=== PATIENT | male | born 1990 | race Caucasian/White ===

== ENCOUNTER 2024-10-19 15:14 | Emergency (ER) | payer OTHER, SELFPAY ==
[2024-10-19 15:21] VITALS: BP 128/95; BP 130/92; PULSE 107; PULSE 120; RESP 18; TEMP 36.9; O2SAT 96; BMI 22.6
--- OUTSIDE RECORDS SUMMARY | 2024-10-19 15:59 | XMS_ITS | Clinical Summary ---
Author Organization [facility] Address [address] [place] [address] Phone Care Team Providers Care Obiee Report Developer Name Role Phone Physician, No Pcp Primary Care Provider Unavaila ble Allergies No known active allergies Medications oxyCODONE (OXY-IR) 5 mg immediate release capsule Take 1 capsule (5 mg total) by mouth every 6 (six) hours if needed for severe pain. Max Daily Amount: 20 mg 6 capsule 05/24/2024 Active Active Problems No known active problems Social History Tobacco Use Types Packs/Day Years Used Date Smoking Tobacco: Every Day Cigarettes Tobacco Cessation:Ready to Q uit: Not Asked; Counseling Given: Not Answered Alcohol Use Standard Drinks/Week Comments Yes 0 (1 standard drink = 0.6 oz pur e alcohol) Sex and Gender Information Value Date Recorded Sex Assigned at Male 05/23/2024 10:23 PM EST Legal Sex Male 6:11 AM EST Gender Identity Male 05/23/2024 10:23 PM EST Sexual Orientation Straight 05/23/2024 10 :23 PM EST Obstetrics History Last Filed Vital Signs Vital Sign Reading Time Taken Comments Blood Pressure 129/70 05/24/2024 12:08 AM EST Pulse 77 05/24/2024 12:08 AM EST Temperature 36.8 C (98.3 F) 05/24/2024 12:08 AM EST Respiratory Rate 18 05/24/2024 12:08 AM EST Oxygen Saturation 98% 05/24/2024 12:08 AM EST Inhaled Oxygen Concentration - - Weight 71.7 kg (158 lb) 05/23/2024 6:22 PM EST Height 180.3 cm (5' 11 ) 05/23/2024 6:22 PM EST Body Mass Index 22.04 05/23/2024 6:22 PM EST Plan of Treatment Health Maintenance Due Date Last Done Comments DTaP,Tdap,and Td Vaccines (1 - Tdap) 2010 Hepatitis B Vaccines (1 of 3 - 19+ 3-dose series) 2010 Pneumococcal Vaccine: Pediat rics (0 to 5 Years) and At-Risk Patients (6 to 49 Years) (1 of 2 - PCV) 2010 COVID-19 Vaccine (1 - 2023-2 5 season) 2023 Cholesterol Screening (Lipid Panel) 05/24/2024 Depression Screening 05/24/2024 HIV Screening 05/24/2024 Hepatitis C Screening 05/24/2024 Social Influencers of Health Screening 05/24/2024 Influenza Vaccine (#1) 2024 HIB Vaccines Aged Out No longer eligi ble based on patient's age to complete this topic HPV Vaccines Aged Out No longer eligi ble based on patient's age to complete this topic Hepatitis A Vaccines Aged Out No long er eligible based on patient's age to complete this topic IPV Vaccines Aged Out No longer eligi ble based on patient's age to complete this topic MMR Vaccines Aged Out No longer eligi ble based on patient's age to complete this topic Meningococcal ACWY Vaccine Aged Out N o longer eligible based on patient's age to complete this topic Meningococcal B Vaccine Aged Out No l onger eligible based on patient's age to complete this topic RSV Immunization Patients Un amaury 20 months Aged Out No longer eligible b ased on patient's age to complete this topic Varicella Vaccines Aged Out No longer eligible based on patient's age to complete this topic Insurance MEDICAID - [place] Care Teams Obiee Report Developer Relationship Specialty Start Date End Date Physician, No Pcp PCP - General 05/23/24
--- NOTE | 2024-10-19 16:21 | ED_ITS ---
HPI - General Adult General Chief complaint: General Medical Stated complaint: seizure like activities no headstrike Time Seen by Provider: 10/19/24 16:06 Related Data Allergies Allergy/AdvReac Type Severity Reaction Status Date / Time No Known Allergies (No Known Allergy Verified 10/19/24 15:28 Allergies*) [facility] Social History Social History Smoked in Last 30 Days: No Use of substances other than those prescribed or required for medical reasons: Yes Substance Use Type: Marijuana Advance Directives: No Advance Directives Information Provided: No Physical Exam ED Vital Signs: Vital Signs - 24 hr 10/19/24 15:21 Temperature 98.4 F Pulse Rate 107 H Respiratory Rate 18 Blood Pressure 128/95 H Pulse Oximetry 96 Oxygen Delivery Method Room Air BMI result Body Mass Index 22.6 Medical Decision Making Medical Decision Making MDM Narrative: I only read the triage report. Patient refused to talk to me. He seems to be awake alert he is answering questions. Does not want to stay. Does not want to be worked up. He signed out against medical advice. I did explain to him based on the triage report there is a chance this could be secondary to seizure versus syncope versus arrhythmia. He should not engage in any activities that will put him in danger if he had a repeat episode of this. This includes driving. This includes swimming. Patient states understanding signed out against medical advice Differential Diagnosis Differential Diagnoses: The differential diagnosis associated with the presentation includes Seizure, syncope, irregular heartbeat, ACS Admission/Observation Consideration of admission/observation: Escalation of care including admission/observation considered Discharge Plan Discharge Clinical Impression: Seizure, Syncope Patient Disposition: Left Against Medical Advice Instructions: Near Syncope (ED), New-Onset Seizure in Adults (ED) Additional Instructions: Risk of seizure risk of irregular heartbeat exists. Please do not drive. Please do not swim. Please do not do any activities that would put you in danger follow-up closely. If you change your mind please come back immediately. Referrals: Physician,Tangela Lam [Primary Care Provider, Medical] - 10/19/24 Stand Alone Forms: Against Medical Advice Print Language: Mohawk
[2024-10-19 16:33] VITALS: BP 133/82; PULSE 85; RESP 14; TEMP 36.8; O2SAT 98
--- NOTE | 2024-10-19 16:40 | PC.NURSE ---
Pt called over this RN and stated that he wanted to leave. This RN notified the attending provider who had signed up for the patient. Dr. Omalley came over to talk to pt. At this time pt stated that he did not want to be evaluated, receive any testing or monitoring and wants to go. He states that he feels well, and had something to drink in the ED. He walks with steady gait unassisted. Vitals WNL. Dr. Omalley explained to the pt that he should be properly evaluated with blood work and testing as there were reports that he may of had a seizure or syncopal episode. Pt affirms that he would like to leave. At this time pt signed AMA paperwork and left the department waiting for his ride to pick him up.
[2024-10-19 16:45] VITALS: BP 133/82; PULSE 85; RESP 14; TEMP 36.8; O2SAT 98
== END 2024-10-19 16:59 | disposition left against medical advice (07) ==
PROVIDERS: Emergency Provider Emergency Medicine Emergency Medical Services
DX: R56.9 Unspecified convulsions (principal); R55 Syncope and collapse
CPT/HCPCS: 99282; 99283

== ENCOUNTER 2024-10-19 17:14 | Inpatient (IN) | payer OTHER, SELFPAY ==
--- NOTE | ~2024-10-19 | MR_ITS ---
EXAMINATION: MR BRAIN WITHOUT CONTRAST CLINICAL INFORMATION: Seizure COMPARISON: No prior MRI. CT head 10/19/2024. TECHNIQUE: MRI of the brain was obtained using routine sequences without contrast. Examination performed on a 1.5 Savita Siemens high-field unit. FINDINGS: Study is essentially bordering on nondiagnostic. The patient could not follow commands nor remain still for the exam. Only axial and sagittal T1, axial diffusion, and severely motion degraded axial flair sequences were able to be obtained. There is no diffusion restriction identified. There is no gross intracranial hemorrhage, or extra-axial fluid collection. No mass effect, edema, or shift of midline. Ventricles, sulci, and cisterns are normal in size and configuration for patient age. Mild asymmetric prominence of the right lateral ventricle is present, normal variant. Temporal horns are symmetric. The FLAIR sequence is heavily motion degraded and essentially nondiagnostic. No large white matter abnormality is present. Moderate mucosal thickening noted within the right maxillary sinus and ethmoid sinuses, with a small right maxillary air-fluid level. No gross bone marrow signal abnormality is evident. MR/MR head/brain wo con IMPRESSION: 1. Essentially nondiagnostic examination due to patient motion and inability to follow commands. 2. Grossly, no intracranial hemorrhage, acute infarction, mass effect, or edema. Repeat examination recommended when the patient is able to tolerate and follow commands. Electronically signed by: Aris Guerrero MD 10/20/2024 01:57 PM EDT
--- NOTE | ~2024-10-19 | CT_ITS ---
CLINICAL HISTORY: new sz CT head without contrast Comparison: None provided Findings: No intra-axial mass, midline shift, hydrocephalus, or acute hemorrhage. No significant atrophy-like change or white matter disease. Air-fluid level right maxillary sinus suggesting acute sinusitis. Mucosal thickening throughout the paranasal sinuses. The orbits are within normal limits. There is no acute fracture. IMPRESSION: 1. No acute intracranial findings. This document has been electronically signed by: Omid Michaels MD on 10/19/2024 21:29:59
--- NOTE | ~2024-10-19 | XR_ITS ---
CLINICAL HISTORY: sob 1 view chest x-ray Comparison: None provided Findings: Mild bilateral infrahilar patchy opacities/bronchial wall thickening. No significant pleural effusion or pneumothorax. Normal size heart. No acute fracture. IMPRESSION: Possible small airways disease. This document has been electronically signed by: Omid Michaels MD on 10/19/2024 21:34:30
--- NOTE | 2024-10-19 17:15 | ED.GENADULT ---
HPI - General Adult General Chief complaint: Seizure Stated complaint: Seizure recently Time Seen by Provider: 10/19/24 19:36 Related Data Home Medications ?Medication ?Instructions ?Recorded ?Confirmed No Known Home Meds 10/20/24 10/20/24 Allergies Allergy/AdvReac Type Severity Reaction Status Date / Time No Known Allergies (No Known Allergy Verified 10/19/24 17:18 Allergies*) [facility] Past Medical History Medical History Alcohol use disorder Social History Social History Alcohol intake: current Alcohol intake frequency: a few times a week Substance Use Type: Marijuana Physical Exam ED Vital Signs: Vital Signs - 24 hr 10/19/24 17:16 10/19/24 19:54 10/19/24 20:54 Temperature 97.8 F 98.5 F 98.3 F Pulse Rate 113 H 115 H 97 Respiratory Rate 18 19 16 Blood Pressure 130/107 H 125/59 L 118/92 H Pulse Oximetry 99 98 95 Oxygen Delivery Method Room Air Room Air Room Air 10/19/24 22:00 Temperature 98.3 F Pulse Rate 16 L Respiratory Rate 20 Blood Pressure 118/78 Pulse Oximetry 98 Oxygen Delivery Method Room Air BMI result Body Mass Index 20.5 Course Course Course Narrative: This is an RME: Additional HPI, ROS, PE not included below will be deferred to primary provider. RME assessment and note performed by: Chastity Solorio PA-C This is a 89-emaj-buw-male who presents to the ER with concerns for possible seizure today. Reports that while he was at work in a very hot building he was lowered to the ground. He states that there was no seizure like activity. No etoh use. +marijuana use. Trip to [place] there and back (26 hrs about 3 months ago). No other recent travels, surgeries or hospitalizations. Plan: Labs, EKG, further ER eval needed Medications Administered Generic Name Dose Route Start Last Admin Trade Name Freq PRN Reason Stop Dose Admin Enoxaparin Sodium 40 mg 10/20/24 00:30 10/20/24 01:20 Enoxaparin Sodium 40 Mg/0.4 Ml Syringe SUBCUT 40 mg BEDTIME BERYL Administration Thiamine HCl 100 mg/ Sodium 101 mls @ 202 mls/hr 10/20/24 00:35 10/20/24 07:15 Chloride IV Infused DAILY BERYL Infusion Lactated Ringer's 1,000 mls @ 100 mls/hr 10/20/24 13:15 10/20/24 14:21 Lr IVCONT 100 mls/hr .Q10H BERYL Administration Nicotine Polacrilex 2 mg 10/20/24 13:06 10/20/24 14:17 Nicotine Polacrilex 2 Mg Gum BUCCAL 2 mg Q2H PRN Administration Nicotine Cravings Sodium Chloride 3 ml 10/20/24 08:00 10/20/24 08:13 0.9 % Sodium Chloride Flush 3 Ml Syringe IVFLUSH 3 ml QSHIFT BERYL Administration Discontinued Medications Generic Name Dose Route Start Last Admin Trade Name Freq PRN Reason Stop Dose Admin Diazepam 10 mg 10/19/24 19:30 10/19/24 19:27 Diazepam 10 Mg/2 Ml Cartridge IM 10/19/24 19:31 10 mg STAT STA Administration Diphenhydramine HCl 50 mg 10/19/24 19:41 10/19/24 19:40 Diphenhydramine Hcl 50 Mg/Ml Vial IM 10/19/24 19:42 50 mg ONCE ONE Administration Haloperidol Lactate 5 mg 10/19/24 19:41 10/19/24 19:40 Haloperidol Lactate 5 Mg/Ml Vial IM 10/19/24 19:42 5 mg ONCE ONE Administration Sodium Chloride 1,000 mls @ 999 mls/hr 10/19/24 19:45 10/20/24 04:35 Ns IV 10/19/24 20:45 Infused .Q1H1M BERYL Infusion Levetiracetam 1,000 mg in 100 mls @ 400 mls/hr 10/19/24 19:35 10/19/24 23:10 Keppra IV 10/19/24 19:49 Infused ONCE ONE Infusion Magnesium Sulfate 2 gm in 50 mls @ 25 mls/hr 10/20/24 00:42 10/20/24 05:18 Magnesium Sulfate/H2o IV 10/20/24 02:41 Not Given ONCE ONE Potassium Chloride 10 meq in 100 mls @ 100 mls/hr 10/20/24 00:45 10/20/24 05:19 Potassium Chloride/H20 IV 10/20/24 04:44 Not Given Q1H BERYL Magnesium Sulfate 2 gm in 50 mls @ 25 mls/hr 10/20/24 05:15 10/20/24 07:40 Magnesium Sulfate/H2o IV 10/20/24 07:14 Infused ONCE ONE Infusion Potassium Chloride 10 meq in 100 mls @ 100 mls/hr 10/20/24 05:15 10/20/24 10:30 Potassium Chloride/H20 IV 10/20/24 09:14 Infused Q1H BERYL Infusion Lorazepam 2 mg 10/20/24 00:18 10/20/24 00:28 Lorazepam 2 Mg/Ml Vial IVPUSH 10/20/24 00:19 2 mg ONCE ONE Administration Phenobarbital 300 mg/ 345 mg 10/20/24 05:00 10/20/24 05:33 Phenobarbital 30 mg/ PO 10/20/24 05:01 345 mg Phenobarbital 15 mg ONCE ONE Administration Phenobarbital 200 mg/ 260 mg 10/20/24 08:00 10/20/24 11:09 Phenobarbital 60 mg PO 10/20/24 11:01 260 mg Q3H BERYL Administration Protocol Medical Decision Making Lab Data 10/20/24 06:01 10/20/24 12:39 Labs: Lab Results 10/19/24 10/19/24 10/19/24 Range/Units 17:46 19:40 20:47 WBC 12.2 H 10.7 (4.8-10.8) X10*3/uL RBC 3.95 L 4.08 L (4.60-5.80) X10*6/uL Hgb 14.0 14.1 (14.0-18.0) g/dl Hct 38.3 L 40.1 L (42.0-52.0) % MCV 97.0 98.3 H (80.0-98.0) fL MCH 35.4 H 34.6 H (27.0-33.0) pg MCHC 36.6 H 35.2 (31.0-36.0) g/dl RDW 12.4 12.3 (11.0-16.0) % Plt Count 177 159 L (160-400) X10*3/uL MPV 10.1 9.9 (9.4-12.4) fL Immature Gran % (Auto) 0.8 H 0.3 (0.0-0.4) % Neut % (Auto) 80.5 H 80.6 H (45-73) % Lymph % (Auto) 9.3 L 9.8 L (20-40) % [place] % (Auto) 8.2 8.0 (2-11) % Eos % (Auto) 0.5 0.5 (0-4) % Baso % (Auto) 0.7 0.8 (0-2) % Lymph # (Auto) 1.1 L 1.0 L (1.2-4.9) X10*3/uL [place] # (Auto) 1.0 0.9 (0.1-1.2) X10*3/uL Eos # (Auto) 0.1 0.1 (0.0-0.4) X10*3/uL Baso # (Auto) 0.1 0.1 (0.0-0.2) X10*3/uL Abs Immat Gran (auto) 0.10 H 0.03 (0.00-0.03) X10*3/uL Absolute Neuts (auto) 9.9 H 8.6 H (2.0-8.3) x10*3/uL Absolute Nucleated RBC 0.000 0.000 (0.0-0.012) X10*3/uL Nucleated RBC % (auto) 0.0 0.0 (0.0-0.2) /100WBC Sodium 136 137 (135-145) mmol/L Potassium 3.3 3.1 L (3.3-5.1) mmol/L Chloride 93 L 94 L (96-108) mmol/L Carbon Dioxide 29 27 (22-29) mmol/L Anion Gap 17 19 (12-20) BUN 13 13 (9-16) mg/dL Creatinine 0.88 0.78 (0.5-1.4) mg/dL Estim Creat Clear Calc 112.6 127.0 Estimated GFR > 60 > 60 POC Glucose 132 H (60-115) mg/dL Random Glucose 123 H 97 (60-115) mg/dL Calcium 9.9 10.2 (8.4-10.2) mg/dL Magnesium 1.5 L (1.6-2.6) mg/dL Total Bilirubin 0.9 0.8 (0.0-1.0) mg/dL Direct Bilirubin 0.3 0.3 (0.0-0.5) mg/dL AST 38 H 38 H (5-37) U/L ALT 36 38 (0-40) U/L Alkaline Phosphatase 117 128 H (39-117) U/L Troponin I High Sens 2.8 (<3.5-35.0) ng/L Total Protein 8.3 H 8.7 H (6.5-8.0) g/dL Albumin 5.0 5.1 H (3.5-5.0) g/dL Lipase 26 (8-78) U/L Ethyl Alcohol < 10 mg/dL Discharge Plan Discharge Clinical Impression: Generalized tonic-clonic seizure, Alcohol withdrawal Patient Disposition: Left Against Medical Advice Interventions: ED Discharge Assessment Last Done: 10/20/24 15:47 Discharge Date/Time: 10/20/24 15:49
[2024-10-19 17:16] VITALS: BP 130/107; PULSE 113; RESP 18; TEMP 36.6; O2SAT 99; BMI 20.5
--- NOTE | 2024-10-19 17:19 | ECG_ITS ---
Test Reason : syncope Blood Pressure : */* mmHG Vent. Rate : 89 BPM Atrial Rate : 89 BPM P-R Int : 130 ms QRS Dur : 88 ms QT Int : 374 ms P-R-T Axes : 2 4 18 degrees QTcB Int : 455 ms Normal sinus rhythm with sinus arrhythmia Normal ECG No previous ECGs available Referred By: Chastity Solorio Electronically Signed By: Zack Lord
[2024-10-19 18:00] LABS: MANUAL DIFF FLAG NO
[2024-10-19 18:07] LABS: Hematocrit 38.3 % (42.0-52.0); Hemoglobin 14.0 g/dl (14.0-18.0); Imm Gran Abs Auto 0.10 X10*3/uL (0.00-0.03); Imm Gran Pct Auto 0.8 % (0.0-0.4); Lymphocytes Absolute Auto 1.1 X10*3/uL (1.2-4.9); Mean Corpuscular HGB Conc 36.6 g/dl (31.0-36.0); Mean Corpuscular Hemoglobin 35.4 pg (27.0-33.0); Mean Corpuscular Volume 97.0 fL (80.0-98.0); NRBC Abs Auto 0.000 X10*3/uL (0.0-0.012); NRBC Pct Auto 0.0 /100WBC (0.0-0.2); Platelet Count 177 X10*3/uL (160-400); Red Blood Count 3.95 X10*6/uL (4.60-5.80); White Blood Count 12.2 X10*3/uL (4.8-10.8)
[2024-10-19 18:17] LABS: Alanine Aminotransferase 36 U/L (0-40); Albumin Level 5.0 g/dL (3.5-5.0); Alkaline Phosphatase 117 U/L (39-117); Anion Gap 17 (12-20); Aspartate Amino Transferase 38 U/L (5-37); Blood Urea Nitrogen 13 mg/dL (9-16); Calcium 9.9 mg/dL (8.4-10.2); Carbon Dioxide 29 mmol/L (22-29); Chloride 93 mmol/L (96-108); Creatinine Clr Calc Pharmacy 112.6; Estimated Glomerular Filt Rate > 60; Lipase 26 U/L (8-78); Magnesium 1.5 mg/dL (1.6-2.6); Potassium 3.3 mmol/L (3.3-5.1); Sodium 136 mmol/L (135-145); Total Protein 8.3 g/dL (6.5-8.0)
[2024-10-19 18:24] LABS: Troponin-I High Sensitivity 2.8 ng/L (<3.5-35.0)
[2024-10-19] MEDS: diazePAM 10 MG/2 ML CARTRIDGE IM (19:27)
--- NOTE | 2024-10-19 19:33 | ECG_ITS ---
Test Reason : SEIZURE Blood Pressure : */* mmHG Vent. Rate : 99 BPM Atrial Rate : 100 BPM P-R Int : 146 ms QRS Dur : 86 ms QT Int : 376 ms P-R-T Axes : 58 40 39 degrees QTcB Int : 482 ms Normal sinus rhythm Prolonged QT Abnormal ECG When compared with ECG of 19-Oct-2024 17:33, No significant change was found Referred By: Scarlett Omalley Electronically Signed By: Zack Lord
--- NOTE | 2024-10-19 19:38 | ED.SEIZURE ---
HPI - Seizure General Chief Complaint: Seizure Stated Complaint: Seizure recently Time Seen by Provider: 10/19/24 19:36 History of Present Illness HPI Narrative: Patient is a 34-year-old male with a history of having a possible seizure earlier today. He came to the hospital. Then did not want to be evaluated. He is waiting in the waiting room. Decided checked himself back because he wanted a work note. Patient was brought back to [facility]. I was called to bedside because patient had an acute tonic-clonic seizure. Has no history of seizures in the past. Related Data Allergies Allergy/AdvReac Type Severity Reaction Status Date / Time No Known Allergies (No Known Allergy Verified 10/19/24 17:18 Allergies*) [facility] Past Medical History Medical History Alcohol use disorder Social History Social History Substance Use Type: Marijuana Advance Directives: No Advance Directives Information Provided: Yes Physical Exam Vital Signs: Vital Signs: Last Vital Signs Temp 98.3 F 10/19/24 22:00 Pulse 16 L 10/19/24 22:00 Resp 20 10/19/24 22:00 BP 118/78 10/19/24 22:00 Pulse Ox 98 10/19/24 22:00 O2 Del Method Room Air 10/19/24 22:00 BMI result Body Mass Index 20.5 Actively seizing Eyes: Pupils equal, round and reactive to light. ENT: Pharynx normal. Neck: Normal inspection. Neck supple. No lymph nodes noted. No crepitus CVS: Normal heart rate and rhythm. Pulses normal. Normal S1 and S2 Respiratory: No respiratory distress. Breath sounds normal. No Wheezing. No rales Abdomen: Soft and nontender. No rigidity. No distention. good BS x4 Skin: Skin warm and dry. Normal skin color. Normal skin turgor. Extremities: No lower extremity edema. Neurovascular intact to all extremities. No Lacerations. No Rash Neuro: Active tonic-clonic seizure Medications Administered Discontinued Medications Generic Name Dose Route Start Last Admin Trade Name Freq PRN Reason Stop Dose Admin Diazepam 10 mg 10/19/24 19:30 10/19/24 19:27 Diazepam 10 Mg/2 Ml Cartridge IM 10/19/24 19:31 10 mg STAT STA Administration Diphenhydramine HCl 50 mg 10/19/24 19:41 10/19/24 19:40 Diphenhydramine Hcl 50 Mg/Ml Vial IM 10/19/24 19:42 50 mg ONCE ONE Administration Haloperidol Lactate 5 mg 10/19/24 19:41 10/19/24 19:40 Haloperidol Lactate 5 Mg/Ml Vial IM 10/19/24 19:42 5 mg ONCE ONE Administration Sodium Chloride 1,000 mls @ 999 mls/hr 10/19/24 19:45 10/19/24 22:23 Ns IV 10/19/24 20:45 999 mls/hr .Q1H1M BERYL Administration Levetiracetam 1,000 mg in 100 mls @ 400 mls/hr 10/19/24 19:35 10/19/24 23:10 Keppra IV 10/19/24 19:49 Infused ONCE ONE Infusion Lorazepam 2 mg 10/20/24 00:18 10/20/24 00:28 Lorazepam 2 Mg/Ml Vial IVPUSH 10/20/24 00:19 2 mg ONCE ONE Administration Medical Decision Making Medical Decision Making MDM Narrative: Patient had a tonic-clonic seizure that was witnessed in the ED today. At lasted for approximately 2 minutes. Patient was given Valium. Postictal state was extremely violent. Patient agitated. Requiring 7 staff members to hold him down due to agitation. Reluctantly we give additional Haldol and Benadryl. Patient was given 10 mg of diazepam earlier. Will check sugar. Given this is the 2nd seizure will start patient on Keppra. CT scan of the head was ordered. CT scan of the head was grossly negative for any acute evidence of bleeding. I reviewed radiology's reading. Patient's alcohol level is negative. On further questioning patient has a long history of drinking. Stop drinking abruptly 3 days ago. Question alcohol withdrawal seizure. Patient will require admission. Additional benzo given. Started on phenobarb protocol. Hospitalist team consulted Differential Diagnosis Differential Diagnoses: The differential diagnosis associated with the presentation includes Seizure, arrhythmia, electrolyte disturbance, polysubstance abuse Admission/Observation Consideration of admission/observation: Escalation of care including admission/observation considered Will require admission for seizure Consult Healthcare Provider Management of the patient was discussed with: Hospitalist and Mitochondrial Disorders Counselor (Hospitalist) Lab Data MDM Lab Attestation statement: I reviewed the patient's lab results. 10/19/24 20:47 10/19/24 20:47 Labs: Lab Results 10/19/24 10/19/24 10/19/24 Range/Units 17:46 19:40 20:47 WBC 12.2 H 10.7 (4.8-10.8) X10*3/uL RBC 3.95 L 4.08 L (4.60-5.80) X10*6/uL Hgb 14.0 14.1 (14.0-18.0) g/dl Hct 38.3 L 40.1 L (42.0-52.0) % MCV 97.0 98.3 H (80.0-98.0) fL MCH 35.4 H 34.6 H (27.0-33.0) pg MCHC 36.6 H 35.2 (31.0-36.0) g/dl RDW 12.4 12.3 (11.0-16.0) % Plt Count 177 159 L (160-400) X10*3/uL MPV 10.1 9.9 (9.4-12.4) fL Immature Gran % (Auto) 0.8 H 0.3 (0.0-0.4) % Neut % (Auto) 80.5 H 80.6 H (45-73) % Lymph % (Auto) 9.3 L 9.8 L (20-40) % [place] % (Auto) 8.2 8.0 (2-11) % Eos % (Auto) 0.5 0.5 (0-4) % Baso % (Auto) 0.7 0.8 (0-2) % Lymph # (Auto) 1.1 L 1.0 L (1.2-4.9) X10*3/uL [place] # (Auto) 1.0 0.9 (0.1-1.2) X10*3/uL Eos # (Auto) 0.1 0.1 (0.0-0.4) X10*3/uL Baso # (Auto) 0.1 0.1 (0.0-0.2) X10*3/uL Abs Immat Gran (auto) 0.10 H 0.03 (0.00-0.03) X10*3/uL Absolute Neuts (auto) 9.9 H 8.6 H (2.0-8.3) x10*3/uL Absolute Nucleated RBC 0.000 0.000 (0.0-0.012) X10*3/uL Nucleated RBC % (auto) 0.0 0.0 (0.0-0.2) /100WBC Sodium 136 137 (135-145) mmol/L Potassium 3.3 3.1 L (3.3-5.1) mmol/L Chloride 93 L 94 L (96-108) mmol/L Carbon Dioxide 29 27 (22-29) mmol/L Anion Gap 17 19 (12-20) BUN 13 13 (9-16) mg/dL Creatinine 0.88 0.78 (0.5-1.4) mg/dL Estim Creat Clear Calc 112.6 127.0 Estimated GFR > 60 > 60 POC Glucose 132 H (60-115) mg/dL Random Glucose 123 H 97 (60-115) mg/dL Calcium 9.9 10.2 (8.4-10.2) mg/dL Magnesium 1.5 L (1.6-2.6) mg/dL Total Bilirubin 0.9 0.8 (0.0-1.0) mg/dL Direct Bilirubin 0.3 0.3 (0.0-0.5) mg/dL AST 38 H 38 H (5-37) U/L ALT 36 38 (0-40) U/L Alkaline Phosphatase 117 128 H (39-117) U/L Troponin I High Sens 2.8 (<3.5-35.0) ng/L Total Protein 8.3 H 8.7 H (6.5-8.0) g/dL Albumin 5.0 5.1 H (3.5-5.0) g/dL Lipase 26 (8-78) U/L Ethyl Alcohol < 10 mg/dL Independent Interpretation I performed an independent interpretation of an: EKG (Sinus heart rate is 100 [place] QRS QTC within normal limits is no acute ST segment elevation) Radiology Impression Discussion of test interpretation with radiology: I have reviewed the radiologist's reading. Chronic Conditions History of alcohol abuse Social Determinants Patient?s care significantly limited by Social Determinants of Health including: Alcoholism and drug addiction in family and Problems related to primary support group Critical Care Time Critical Care Time Critical Care Time: Yes Total Critical Care Time: 35 Attestation: I have personally provided 40 minutes of critical care time exclusive of time spent on separately billable procedures. ?Time includes review of lab data, radiology results, discussion with consultants, and monitoring for potential decompensation. ?Interventions were performed as documented above Discharge Plan Discharge Clinical Impression: Generalized tonic-clonic seizure, Alcohol withdrawal Print Language: Latvian
[2024-10-19 19:43] LABS: Glucose, Whole Blood 132 mg/dL (60-115)
[2024-10-19 19:54] VITALS: BP 125/59; PULSE 115; RESP 19; TEMP 36.9; O2SAT 98
[2024-10-19 20:52] LABS: MANUAL DIFF FLAG NO
[2024-10-19 20:53] LABS: Hematocrit 40.1 % (42.0-52.0); Hemoglobin 14.1 g/dl (14.0-18.0); Imm Gran Abs Auto 0.03 X10*3/uL (0.00-0.03); Imm Gran Pct Auto 0.3 % (0.0-0.4); Lymphocytes Absolute Auto 1.0 X10*3/uL (1.2-4.9); Mean Corpuscular HGB Conc 35.2 g/dl (31.0-36.0); Mean Corpuscular Hemoglobin 34.6 pg (27.0-33.0); Mean Corpuscular Volume 98.3 fL (80.0-98.0); NRBC Abs Auto 0.000 X10*3/uL (0.0-0.012); NRBC Pct Auto 0.0 /100WBC (0.0-0.2); Platelet Count 159 X10*3/uL (160-400); Red Blood Count 4.08 X10*6/uL (4.60-5.80); White Blood Count 10.7 X10*3/uL (4.8-10.8)
[2024-10-19 20:54] VITALS: BP 118/92; PULSE 97; RESP 16; TEMP 36.8; O2SAT 95
[2024-10-19 21:09] LABS: Alanine Aminotransferase 38 U/L (0-40); Albumin Level 5.1 g/dL (3.5-5.0); Alkaline Phosphatase 128 U/L (39-117); Anion Gap 19 (12-20); Aspartate Amino Transferase 38 U/L (5-37); Blood Urea Nitrogen 13 mg/dL (9-16); Calcium 10.2 mg/dL (8.4-10.2); Carbon Dioxide 27 mmol/L (22-29); Chloride 94 mmol/L (96-108); Creatinine Clr Calc Pharmacy 127.0; Estimated Glomerular Filt Rate > 60; Potassium 3.1 mmol/L (3.3-5.1); Sodium 137 mmol/L (135-145); Total Protein 8.7 g/dL (6.5-8.0)
--- NOTE | 2024-10-19 21:20 | PC.NURSE ---
Assumed care of pt, pt currently sleeping w/ eyes closed and nad.
[2024-10-19 22:00] VITALS: BP 118/78; PULSE 16; RESP 20; TEMP 36.8; O2SAT 98
[2024-10-19] MEDS: levETIRAcetam in NaCl (iso-os) 1,000 MG/100 ML PIGGYBACK 400 MG IV (22:22)
--- NOTE | 2024-10-20 | EEG_ITS ---
This is a 16 channel EEG with an EKG lead. Patient is reported awake during the tracing. Background EEG rhythm is 16-20 hertz, 5-20 microvolt posteriorly lower amplitude fast anteriorly. Photic stimulation does not produce any significant driving. Hyperventilation is not performed. Cardiac lead does not reveal any significant abnormality. No sharp wave spikes or paroxysmal tendency noted. Impression: No significant abnormality noted on this EEG. MTDD
[2024-10-20] MEDS: LORazepam 2 MG/ML VIAL IVPUSH (00:28)
--- NOTE | 2024-10-20 00:30 | PM.IMHP ---
History of Present Illness Date of Service: 10/20/24 Chief Complaint: Seizure This is a 34-year-old male with pertinent history of alcohol use disorder who was brought to the emergency department for evaluation of seizure-like activity. History is limited as patient is postictal and post Ativan at the time of my evaluation. Initially patient did not want to be evaluated and he wanted to leave with a work note. He had an episode of witnessed seizure, generalized tonic-clonic that was witnessed by ER provider in the ER that lasted for 2 minutes. No history of seizures in the past. Patient awakens to voice, knows his name, oriented to place but falls back asleep mid conversation. Does endorse drinking alcohol every day and he stopped drinking 2 days prior to presentation. Unable to obtain complete review of systems. In the emergency department, patient was initiated on phenobarb protocol and given IV Keppra. Review of Systems Review of Systems: Yes Unobtainable due to mental status PMFSH Medical History Alcohol use disorder Pertinent family history: No family history of early CAD Social History Substance Use Type: Marijuana Advance Directives: No Advance Directives Information Provided: Yes Meds Allergies Allergy/AdvReac Type Severity Reaction Status Date / Time No Known Allergies (No Known Allergy Verified 10/19/24 17:18 Allergies*) Active Medications: Current Medications Pharmacy Consult (Consult Rx Etoh Phenob Po Only) 1 each MISCELLANE ONCE PRN; Protocol PRN Reason: Consult order Phenobarbital (Phenobarbital 30 Mg Tablet) 30 mg PO Q4H PRN PRN Reason: Breakthrough alcohol withdrawa Physical Exam Vital Signs and Narrative: Vital Signs: Last Vital Signs Temp 98.3 F 10/19/24 22:00 Pulse 16 L 10/19/24 22:00 Resp 20 10/19/24 22:00 BP 118/78 10/19/24 22:00 Pulse Ox 98 10/19/24 22:00 O2 Del Method Room Air 10/19/24 22:00 BMI result Body Mass Index 20.5 Young male lying in bed in no distress Neck supple, no JVD Regular rate and rhythm, S1-S2 heard Regular breath sounds bilaterally, no wheezing or crackles appreciated Abdomen soft nontender, no guarding, no rigidity Patient is drowsy but awakens to verbal stimulus, oriented to name and place, falls back asleep mid conversation, no focal motor deficits seen Psych: Lethargic No pedal edema Results Labs 10/19/24 20:47 10/19/24 20:47 Labs: Laboratory Results - last 24 hr 10/19/24 10/19/24 10/19/24 17:46 19:40 20:47 MCV 97.0 98.3 H MCH 35.4 H 34.6 H MCHC 36.6 H 35.2 RDW 12.4 12.3 Plt Count 177 159 L MPV 10.1 9.9 Immature Gran % (Auto) 0.8 H 0.3 Neut % (Auto) 80.5 H 80.6 H Lymph % (Auto) 9.3 L 9.8 L [place] % (Auto) 8.2 8.0 Eos % (Auto) 0.5 0.5 Baso % (Auto) 0.7 0.8 Lymph # (Auto) 1.1 L 1.0 L [place] # (Auto) 1.0 0.9 Eos # (Auto) 0.1 0.1 Baso # (Auto) 0.1 0.1 Abs Immat Gran (auto) 0.10 H 0.03 Absolute Neuts (auto) 9.9 H 8.6 H Absolute Nucleated RBC 0.000 0.000 Nucleated RBC % (auto) 0.0 0.0 Anion Gap 17 19 Estim Creat Clear Calc 112.6 127.0 Estimated GFR > 60 > 60 POC Glucose 132 H Random Glucose 123 H 97 Calcium 9.9 10.2 Magnesium 1.5 L Total Bilirubin 0.9 0.8 Direct Bilirubin 0.3 0.3 AST 38 H 38 H ALT 36 38 Alkaline Phosphatase 117 128 H Total Protein 8.3 H 8.7 H Albumin 5.0 5.1 H Lipase 26 Ethyl Alcohol < 10 Assessment and Plan (1) Generalized tonic-clonic seizure: Status: Acute Plan This is a 34-year-old male with pertinent history of alcohol use disorder who was brought to the emergency department for evaluation of seizure-like activity. #. Generalized tonic-clonic seizures, new onset: ?due to alcohol withdrawal. Had 1 episode at work and 1 witnessed episode in the ER. Given IV Keppra in the ER. Consulting Neurology. Obtaining MRI and EEG to complete workup. #. Acute postictal encephalopathy: NPO until mentation improves #. Alcohol use disorder: Monitor CIWA. Started on phenobarb protocol in the ER. Initiated thiamine. Consulting Addiction Team. UDS pending. Obtaining folate #. Hypokalemia and hypomagnesemia due to alcohol use: Repleted Med rec pending DVT prophylaxis: Lovenox Full code Admit as inpatient and will require two night minimum hospital stay for evaluation of new onset generalized tonic-clonic seizures, management of alcohol withdrawal, monitoring of electrolytes (as above), which is not possible in a lesser acute setting. Specialist consult pending Quality Stroke Does the patient have a stroke diagnosis?: No VTE Prior VTE?: No VTE Risk Level:: Medical - moderate - high VTE Device Contraindication: Treatment Not Indicated VTE Drug Contraindication: N/A - Med Ordered
--- NOTE | 2024-10-20 05:20 | PC.NURSE ---
this rn took over at 0300 it was down time that this time, the rn that was leaving the shift never administered the potassium infusions, magnesium infusion and the thiamine infusion which are flagging from 0035, did administer the lovenox subq from what i can see in the pixwes is that it was pulled at 0135. called the the overnight pharmacy to adjust the times for the potassium and magnesium and thiamine but still need to tiger dr duran about the thiamine because pharmacy is unable to change the times on the thiamine at this time
[2024-10-20] MEDS: Potassium Chloride/H20 10 MEQ/100 ML PIGGYBACK 100 MEQ IV ×4 (05:32→09:26)
[2024-10-20] MEDS: Magnesium Sulfate/H2O 2 GM/50 ML PIGGYBACK IV (05:33)
[2024-10-20] MEDS: PHENOBARBITAL 345 MG PO (05:33)
[2024-10-20 06:29] LABS: MANUAL DIFF FLAG NO
[2024-10-20 06:44] LABS: Hematocrit 38.7 % (42.0-52.0); Hemoglobin 13.8 g/dl (14.0-18.0); Imm Gran Abs Auto 0.02 X10*3/uL (0.00-0.03); Imm Gran Pct Auto 0.2 % (0.0-0.4); Lymphocytes Absolute Auto 1.6 X10*3/uL (1.2-4.9); Mean Corpuscular HGB Conc 35.7 g/dl (31.0-36.0); Mean Corpuscular Hemoglobin 35.2 pg (27.0-33.0); Mean Corpuscular Volume 98.7 fL (80.0-98.0); NRBC Abs Auto 0.000 X10*3/uL (0.0-0.012); NRBC Pct Auto 0.0 /100WBC (0.0-0.2); Platelet Count 162 X10*3/uL (160-400); Red Blood Count 3.92 X10*6/uL (4.60-5.80); White Blood Count 8.5 X10*3/uL (4.8-10.8)
[2024-10-20] MEDS: Thiamine HCL 100 MG in 0.9 % Sodium Chloride 100 ML 202 MG IV (06:51)
[2024-10-20 06:58] LABS: Anion Gap 14 (12-20)
[2024-10-20 07:00] VITALS: BP 122/70; PULSE 78; RESP 12; O2SAT 100
[2024-10-20 07:08] LABS: Blood Urea Nitrogen 10 mg/dL (9-16); Calcium 9.3 mg/dL (8.4-10.2); Carbon Dioxide 28 mmol/L (22-29); Chloride 97 mmol/L (96-108); Creatinine Clr Calc Pharmacy 133.9; Estimated Glomerular Filt Rate > 60; Magnesium 2.1 mg/dL (1.6-2.6); Potassium 2.8 mmol/L (3.3-5.1); Sodium 136 mmol/L (135-145)
--- NOTE | 2024-10-20 07:16 | PC.NURSE ---
Pt tossing and turning in bed, resting with eyes closed. RR even and unlabored, denies SOB or pain.
[2024-10-20 07:34] LABS: Folate 8.6 ng/mL (> or = 4.0)
[2024-10-20] MEDS: 0.9 % Sodium Chloride Flush 3 ML SYRINGE IVFLUSH (08:13)
[2024-10-20] MEDS: PHENobarbitaL 200 MG, PHENobarbitaL 60 MG 260 MG PO ×2 (08:15→11:09)
--- NOTE | 2024-10-20 08:23 | PHA.MEDREC ---
Pharmacy Consult ? Medication Reconciliation Pharmacy has completed the medication reconciliation. Patient reports no medications at home. Rosette Pyle, BlancaD
--- NOTE | 2024-10-20 09:18 | PC.NURSE ---
recieved phone call from friend Hayden Lacy, authorized by patient to provide update. Updated provided per patient's request.
[2024-10-20 09:55] LABS: Appearance Urine Clear; Glucose Urine UA Negative (Negative); PH 6.5 (5.0-9.0); Specific Gravity - Urine 1.025 (1.005-1.025); UMIC TRIGGER UACC YES
[2024-10-20 10:14] LABS: Cannabinoid Screen Urine POSITIVE (Not Detect)
[2024-10-20 11:03] VITALS: PULSE 114; RESP 18; O2SAT 98
[2024-10-20 12:52] LABS: Potassium 3.6 mmol/L (3.3-5.1)
--- NOTE | 2024-10-20 12:52 | HO.ADDICT_ITS ---
History of Present Illness Date of Service: 10/20/2024 Chief Complaint: Seizure Reason for Consult: AUD Sources of Information: patient interviewed and chart reviewed HPI Narrative: Patient is a 34 year old male, with no known medical history, who presented to [facility] ED with concern of seizure like activity at home. While in ED had a tonic clonic seizure, and subsequently admitted. Consult requested as there was concern that seizure may have been related to alcohol withdrawal. Patient seen in room 19 of main ED. He is awake, alert, pleasant and engaged in interview. Initially stating he does not believe what occurred was related to alcohol withdrawal, but rather the heat, dehydration and taking a break from drinking . He states that he has been drinking btwn 3-5 nips of Tristin Leon after work. He states that he has been drinking daily for several weeks, however also states that he has often will take a or day or two off . He denies any tremor, anxiety, upset stomach when he does not drink. Denies any other substance use, aside from cannabis. Denies any history of treatment Denies any family history of AUD Denies tremor, nausea, anxiety. No sx noted. --phenobarbital taper started overnight HR 114 . Labs show K 2.8 Mg improved to 2.1(1.5 at admission) Medical Evaluation Reviewed: Yes Review of Systems Constitutional: Reports as per HPI Diagnostics Vital Signs (24Hr): Vital Signs - 24 hr 10/19/24 17:16 10/19/24 19:54 10/19/24 20:54 Temperature 97.8 F 98.5 F 98.3 F Pulse Rate 113 H 115 H 97 Respiratory Rate 18 19 16 Blood Pressure 130/107 H 125/59 L 118/92 H Pulse Oximetry 99 98 95 Oxygen Delivery Method Room Air Room Air Room Air 10/19/24 22:00 10/20/24 07:00 10/20/24 11:03 Temperature 98.3 F Pulse Rate 16 L 78 114 H Respiratory Rate 20 12 18 Blood Pressure 118/78 122/70 Pulse Oximetry 98 100 98 Oxygen Delivery Method Room Air Room Air Room Air BMI result Body Mass Index 20.5 Labs 10/20/24 06:01 10/20/24 12:39 Labs: Laboratory Results - last 48 hr 10/19/24 10/19/24 10/19/24 17:46 19:40 20:47 WBC 12.2 H 10.7 RBC 3.95 L 4.08 L Hgb 14.0 14.1 Hct 38.3 L 40.1 L MCV 97.0 98.3 H MCH 35.4 H 34.6 H MCHC 36.6 H 35.2 RDW 12.4 12.3 Plt Count 177 159 L MPV 10.1 9.9 Immature Gran % (Auto) 0.8 H 0.3 Neut % (Auto) 80.5 H 80.6 H Lymph % (Auto) 9.3 L 9.8 L [place] % (Auto) 8.2 8.0 Eos % (Auto) 0.5 0.5 Baso % (Auto) 0.7 0.8 Lymph # (Auto) 1.1 L 1.0 L [place] # (Auto) 1.0 0.9 Eos # (Auto) 0.1 0.1 Baso # (Auto) 0.1 0.1 Abs Immat Gran (auto) 0.10 H 0.03 Absolute Neuts (auto) 9.9 H 8.6 H Absolute Nucleated RBC 0.000 0.000 Nucleated RBC % (auto) 0.0 0.0 Sodium 136 137 Potassium 3.3 3.1 L Chloride 93 L 94 L Carbon Dioxide 29 27 Anion Gap 17 19 BUN 13 13 Creatinine 0.88 0.78 Estim Creat Clear Calc 112.6 127.0 Estimated GFR > 60 > 60 POC Glucose 132 H Random Glucose 123 H 97 Calcium 9.9 10.2 Magnesium 1.5 L Total Bilirubin 0.9 0.8 Direct Bilirubin 0.3 0.3 AST 38 H 38 H ALT 36 38 Alkaline Phosphatase 117 128 H Troponin I High Sens 2.8 Total Protein 8.3 H 8.7 H Albumin 5.0 5.1 H Lipase 26 Folate Urine Color Urine Appearance Urine pH Ur Specific [place] Urine Protein Urine Glucose (UA) Urine Ketones Urine Blood Urine Nitrite Ur Leukocyte Esterase Urine RBC Urine WBC Ur Squamous Epith Cells Urine Bacteria Hyaline Casts Urine Opiates Screen Ur Buprenorphine Scrn Ur Oxycodone Screen Urine Methadone Screen Urine Fentanyl Screen Ur Barbiturates Screen Ur Phencyclidine Scrn Ur Amphetamines Screen U Benzodiazepines Scrn Urine Cocaine Screen U Marijuana (THC) Screen Ethyl Alcohol < 10 10/20/24 10/20/24 06:01 09:29 WBC 8.5 RBC 3.92 L Hgb 13.8 L Hct 38.7 L MCV 98.7 H MCH 35.2 H MCHC 35.7 RDW 12.5 Plt Count 162 MPV 10.2 Immature Gran % (Auto) 0.2 Neut % (Auto) 68.7 Lymph % (Auto) 18.6 L [place] % (Auto) 9.5 Eos % (Auto) 1.9 Baso % (Auto) 1.1 Lymph # (Auto) 1.6 [place] # (Auto) 0.8 Eos # (Auto) 0.2 Baso # (Auto) 0.1 Abs Immat Gran (auto) 0.02 Absolute Neuts (auto) 5.8 Absolute Nucleated RBC 0.000 Nucleated RBC % (auto) 0.0 Sodium 136 Potassium 2.8 L* Chloride 97 Carbon Dioxide 28 Anion Gap 14 BUN 10 Creatinine 0.74 Estim Creat Clear Calc 133.9 Estimated GFR > 60 POC Glucose Random Glucose 100 Calcium 9.3 D Magnesium 2.1 Total Bilirubin Direct Bilirubin AST ALT Alkaline Phosphatase Troponin I High Sens Total Protein Albumin Lipase Folate 8.6 Urine Color Dark Yellow Urine Appearance Clear Urine pH 6.5 Ur Specific [place] 1.025 Urine Protein Trace Urine Glucose (UA) Negative Urine Ketones Trace Urine Blood Negative Urine Nitrite Negative Ur Leukocyte Esterase Trace H Urine RBC 0-2 Urine WBC 0-5 Ur Squamous Epith Cells 0-2 Urine Bacteria None Seen Hyaline Casts 0-2 Urine Opiates Screen Not Detected Ur Buprenorphine Scrn Not Detected Ur Oxycodone Screen Not Detected Urine Methadone Screen Not Detected Urine Fentanyl Screen Not Detected Ur Barbiturates Screen POSITIVE H Ur Phencyclidine Scrn Not Detected Ur Amphetamines Screen Not Detected U Benzodiazepines Scrn POSITIVE H Urine Cocaine Screen POSITIVE H U Marijuana (THC) Screen POSITIVE H Ethyl Alcohol Mental Status Exam Mental Status Exam Patient Orientation: Person, Place, Time and Situation Level of Consciousness: Awake, Appropriate and Alert Patient Behavior: Appropriate and Talkative Mood Description: Calm Affect Description: Relaxed Speech Pattern: Clear Hallucinations: None Thought Process: Intact Thought Content: positive for Intact Judgement: Good Medications Medications Current Medications Acetaminophen (Acetaminophen 325 Mg Tablet) 650 mg PO Q6H PRN PRN Reason: Pain, Mild 1-3,fever,headache Calcium Carbonate (Calcium Carbonate 750 Mg Tab.Chew) 750 mg PO Q4H PRN PRN Reason: Heartburn Enoxaparin Sodium (Enoxaparin Sodium 40 Mg/0.4 Ml Syringe) 40 mg SUBCUT BEDTIME BERYL Last Admin: 10/20/24 01:20 Dose: 40 mg Thiamine HCl 100 mg/ Sodium (Chloride) 101 mls @ 202 mls/hr IV DAILY BERYL Last Infusion: 10/20/24 07:15 Dose: Infused Magnesium Hydroxide (Milk Of Magnesia 30 Ml Oral.Susp) 30 ml PO DAILY PRN PRN Reason: Constipation Melatonin (Melatonin 3 Mg Tablet) 6 mg PO BEDTIME PRN PRN Reason: Insomnia Ondansetron HCl (Ondansetron Hcl 4 Mg/2 Ml Vial) 4 mg IVPUSH Q8H PRN PRN Reason: Nausea and Vomiting Pharmacy Consult (Consult Rx Etoh Phenob Po Only) 1 each MISCELLANE ONCE PRN; Protocol PRN Reason: Consult order Phenobarbital (Phenobarbital 30 Mg Tablet) 30 mg PO Q4H PRN; Protocol PRN Reason: Breakthrough alcohol withdrawa Phenobarbital (Phenobarbital 15 Mg Tablet) 45 mg PO BID BERYL; Protocol Stop: 10/22/24 09:01 Phenobarbital (Phenobarbital 15 Mg Tablet) 15 mg PO BID BERYL; Protocol Stop: 10/24/24 09:01 Phenobarbital (Phenobarbital 15 Mg Tablet) 15 mg PO DAILY BERYL; Protocol Stop: 10/26/24 09:01 Sodium Chloride (0.9 % Sodium Chloride Flush 3 Ml Syringe) 3 ml IVFLUSH QSHIFT [facility] Last Admin: 10/20/24 08:13 Dose: 3 ml Allergies Allergies Allergy/AdvReac Type Severity Reaction Status Date / Time No Known Allergies (No Known Allergy Verified 10/19/24 17:18 Allergies*) Assessment & Plan Assessment & Plan (1) Alcohol use disorder: Status: Acute Code(s): F10.90 - Alcohol use, unspecified, uncomplicated Assessment and Plan: * CIWA 0--however also received phenobarbital. * IV thiamine in place * safer drinking strategies discussed. discussed electrolyte deficiencies and relationship to alcohol use * knowledge deficit identified with regards to developing tolerance and dependance to alcohol with repeated use * states he does not plan on drinking for a while . 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 PMFSH Past Medical History Medical History Alcohol use disorder Social History Social History Alcohol intake: current Alcohol intake frequency: a few times a week Smoked in Last 30 Days: Yes Use of substances other than those prescribed or required for medical reasons: Yes Substance Use Type: Marijuana Advance Directives: No Advance Directives Information Provided: Yes
--- NOTE | 2024-10-20 13:10 | PM.EVENT ---
Event Note Date of Service: 10/20/24 Event Note: Seen and examined this morning Follow-up for seizure Patient awake, alert, in no acute distress This is a 34-year-old male with pertinent history of alcohol use disorder who was brought to the emergency department for evaluation of seizure-like activity. Generalized tonic-clonic seizures, new onset: ?due to alcohol withdrawal. Had 1 episode at work and 1 witnessed episode in the ER Brain CT negative Given IV Keppra in the ER EEG, MRI pending Neurology consult pending Acute postictal encephalopathy: resolved. awake and alert Alcohol use disorder: Continue phenobarbital protocol CIWA low, continue to follow Continue thiamine, folic acid Addiction Medicine following Tobacco dependence Smoking cessation advised NRT Hypokalemia and hypomagnesemia due to alcohol use: Repleted and improved DVT prophylaxis: Lovenox Full code Time Spent With Patient Time: Total time managing care of this patient today ____ minutes.
--- NOTE | 2024-10-20 13:15 | PC.NURSE ---
pt of to MRI
[2024-10-20] MEDS: Lactated Ringers 1,000 ML 100 ML IVCONT (14:21)
--- NOTE | 2024-10-20 15:19 | PC.NURSE ---
Patient is talking about leaving AMA if he's not discharged by 5. He said his sister is having a baby and he doesn't want to miss it. I tried to explain to him it's important for him to stay and he could put himself at risk by leaving. Provider notified.
--- NOTE | 2024-10-20 15:26 | PM.DS ---
DS: Providers Provider Date of Service: 10/20/24 Date of admission: 10/20/24 00:29 Date of discharge: 10/20/24 Primary care physician: None Physician Consults: 10/20/24 00:29 Consult to Neurology Routine Consulting Provider: [facility] Reason for consultation: seizure 10/20/24 00:34 Addiction Medicine Provider Routine Consulting Provider: Addiction Covering Reason for consultation: Alcohol use disorder 10/20/24 14:56 Inpt - Recovery Team Routine Comment: Reason for consultation: IRLANDA eval Attending physician on discharge: Shadi Valdez Discharging clinician: Pascale Oneill DS: Diagnosis Discharge Diagnosis (1) Alcohol use disorder: Status: Acute (2) Generalized tonic-clonic seizure: Status: Acute DS: Summary Hospital Course Hospital Course: From H&P on the day of admission This is a 34-year-old male with pertinent history of alcohol use disorder who was brought to the emergency department for evaluation of seizure-like activity. History is limited as patient is postictal and post Ativan at the time of my evaluation. Initially patient did not want to be evaluated and he wanted to leave with a work note. He had an episode of witnessed seizure, generalized tonic-clonic that was witnessed by ER provider in the ER that lasted for 2 minutes. No history of seizures in the past. Patient awakens to voice, knows his name, oriented to place but falls back asleep mid conversation. Does endorse drinking alcohol every day and he stopped drinking 2 days prior to presentation. Unable to obtain complete review of systems. In the emergency department, patient was initiated on phenobarb protocol and given IV Keppra. Generalized tonic-clonic seizures, new onset: ?due to alcohol withdrawal. Had 1 episode at work and 1 witnessed episode in the ER Brain CT negative Given IV Keppra in the ER EEG, MRI pending Neurology consult pending Acute postictal encephalopathy: resolved. awake and alert Alcohol use disorder: Continue phenobarbital protocol CIWA low, continue to follow Continue thiamine, folic acid Addiction Medicine following Tobacco dependence Smoking cessation advised NRT Hypokalemia and hypomagnesemia due to alcohol use: Repleted and improved Unfortunately patient has elected to leave the hospital against medical advice. The risks of recurrent seizure were discussed with him. He is awake, alert and oriented x3, verbalizes his understanding. He was verbally told not to drive or swim/bathe alone. Recommended to abstain from alcohol use Time Attestation Discharge Coordination Time (in mins): 35 Quality: Safe Use of Opioids Does Pt have an Active Cancer Diagnosis on the Problem List?: No Quality: Stroke Does the patient have a stroke diagnosis?: No Physical Exam Vital Signs: Vital Signs: Last Vital Signs Temp 98.3 F 10/19/24 22:00 Pulse 114 H 10/20/24 11:03 Resp 18 10/20/24 11:03 BP 122/70 10/20/24 07:00 Pulse Ox 98 10/20/24 11:03 O2 Del Method Room Air 10/20/24 11:03 BMI result Body Mass Index 20.5 Const: Other: non-tremoulous General: alert and awake Orientation/consciousness: patient oriented x3 Neuro: General: patient oriented x3, moves all extremities and CN's II-XI intact bilaterally DS: Data Data Completed and Pending Labs on day of discharge: Laboratory Results - last 24 hr 10/19/24 10/19/24 10/19/24 17:46 19:40 20:47 WBC 12.2 H 10.7 RBC 3.95 L 4.08 L Hgb 14.0 14.1 Hct 38.3 L 40.1 L MCV 97.0 98.3 H MCH 35.4 H 34.6 H MCHC 36.6 H 35.2 RDW 12.4 12.3 Plt Count 177 159 L MPV 10.1 9.9 Immature Gran % (Auto) 0.8 H 0.3 Neut % (Auto) 80.5 H 80.6 H Lymph % (Auto) 9.3 L 9.8 L [place] % (Auto) 8.2 8.0 Eos % (Auto) 0.5 0.5 Baso % (Auto) 0.7 0.8 Lymph # (Auto) 1.1 L 1.0 L [place] # (Auto) 1.0 0.9 Eos # (Auto) 0.1 0.1 Baso # (Auto) 0.1 0.1 Abs Immat Gran (auto) 0.10 H 0.03 Absolute Neuts (auto) 9.9 H 8.6 H Absolute Nucleated RBC 0.000 0.000 Nucleated RBC % (auto) 0.0 0.0 Sodium 136 137 Potassium 3.3 3.1 L Chloride 93 L 94 L Carbon Dioxide 29 27 Anion Gap 17 19 BUN 13 13 Creatinine 0.88 0.78 Estim Creat Clear Calc 112.6 127.0 Estimated GFR > 60 > 60 POC Glucose 132 H Random Glucose 123 H 97 Calcium 9.9 10.2 Magnesium 1.5 L Total Bilirubin 0.9 0.8 Direct Bilirubin 0.3 0.3 AST 38 H 38 H ALT 36 38 Alkaline Phosphatase 117 128 H Troponin I High Sens 2.8 Total Protein 8.3 H 8.7 H Albumin 5.0 5.1 H Lipase 26 Folate Urine Color Urine Appearance Urine pH Ur Specific [place] Urine Protein Urine Glucose (UA) Urine Ketones Urine Blood Urine Nitrite Ur Leukocyte Esterase Urine RBC Urine WBC Ur Squamous Epith Cells Urine Bacteria Hyaline Casts Urine Opiates Screen Ur Buprenorphine Scrn Ur Oxycodone Screen Urine Methadone Screen Urine Fentanyl Screen Ur Barbiturates Screen Ur Phencyclidine Scrn Ur Amphetamines Screen U Benzodiazepines Scrn Urine Cocaine Screen U Marijuana (THC) Screen Ethyl Alcohol < 10 10/20/24 10/20/24 10/20/24 06:01 09:29 12:39 WBC 8.5 RBC 3.92 L Hgb 13.8 L Hct 38.7 L MCV 98.7 H MCH 35.2 H MCHC 35.7 RDW 12.5 Plt Count 162 MPV 10.2 Immature Gran % (Auto) 0.2 Neut % (Auto) 68.7 Lymph % (Auto) 18.6 L [place] % (Auto) 9.5 Eos % (Auto) 1.9 Baso % (Auto) 1.1 Lymph # (Auto) 1.6 [place] # (Auto) 0.8 Eos # (Auto) 0.2 Baso # (Auto) 0.1 Abs Immat Gran (auto) 0.02 Absolute Neuts (auto) 5.8 Absolute Nucleated RBC 0.000 Nucleated RBC % (auto) 0.0 Sodium 136 Potassium 2.8 L* 3.6 D Chloride 97 Carbon Dioxide 28 Anion Gap 14 BUN 10 Creatinine 0.74 Estim Creat Clear Calc 133.9 Estimated GFR > 60 POC Glucose Random Glucose 100 Calcium 9.3 D Magnesium 2.1 Total Bilirubin Direct Bilirubin AST ALT Alkaline Phosphatase Troponin I High Sens Total Protein Albumin Lipase Folate 8.6 Urine Color Dark Yellow Urine Appearance Clear Urine pH 6.5 Ur Specific [place] 1.025 Urine Protein Trace Urine Glucose (UA) Negative Urine Ketones Trace Urine Blood Negative Urine Nitrite Negative Ur Leukocyte Esterase Trace H Urine RBC 0-2 Urine WBC 0-5 Ur Squamous Epith Cells 0-2 Urine Bacteria None Seen Hyaline Casts 0-2 Urine Opiates Screen Not Detected Ur Buprenorphine Scrn Not Detected Ur Oxycodone Screen Not Detected Urine Methadone Screen Not Detected Urine Fentanyl Screen Not Detected Ur Barbiturates Screen POSITIVE H Ur Phencyclidine Scrn Not Detected Ur Amphetamines Screen Not Detected U Benzodiazepines Scrn POSITIVE H Urine Cocaine Screen POSITIVE H U Marijuana (THC) Screen POSITIVE H Ethyl Alcohol Discharge Plan Discharge Anticipated Discharge Date/Time: 10/20/24 15:29 Patient Disposition: Left Against Medical Advice Discharge Diagnosis: Generalized seizure Alcohol use disorder Hypokalemia/hypomagnesemia Referrals: Physician,None [Primary Care Provider, Medical] - 1 Week Discharge Medications: No Action No Known Home Meds Discharge Orders: Discharge Order (Routine); Ordered 10/20/24 Ordered By: Pascale Oneill Stand Alone Forms: Work/School Release Print Language: [place] Care Plan Goals: Prevent future seizures Abstain from alcohol use Health Concerns: Generalized seizure Alcohol use disorder Low potassium, low magnesium Tobacco dependence Plan of Treatment: Recommend to avoid the use of alcohol and tobacco Do not drive, do not swim or take a bath alone; avoid operating heavy machinery etc It was recommended for you to stay in the hospital and complete workup for seizures/alcohol withdrawal but you have elected to leave the hospital against medical advice. Assessment: Left against medical advice
[2024-10-20 15:37] VITALS: BP 120/80; PULSE 96; RESP 18; O2SAT 100
[2024-10-20 15:47] VITALS: BP 120/80; PULSE 96; RESP 18; TEMP -17.7; TEMP 0; O2SAT 100
--- NOTE | 2024-10-20 15:49 | PC.NURSE ---
AMA paperwork reviewed with patient, pt discussed with provider. Pt signed and left.
== END 2024-10-20 15:45 | disposition left against medical advice (07) | DRG 894 ==
LOC: HO.ED 19:36 → HO.EDOVER 10-20 05:36
PROVIDERS: Physician Assistant Medical; Admitting Provider Student in an Organized Health Care Education/Training Program; Emergency Provider Emergency Medicine Emergency Medical Services; Visit Provider Physician Assistant Medical
DX: F10.939 Alcohol use, unspecified with withdrawal, unspecified (principal); R56.9 Unspecified convulsions; F17.210 Nicotine dependence, cigarettes, uncomplicated; Z71.6 Tobacco abuse counseling; E87.6 Hypokalemia; E83.42 Hypomagnesemia
CPT/HCPCS: 36415; 70450; 70551; 71045; 80048; 80076; 80307; 81001; 82746; 82947; 83690; 83735; 84132; 84484; 85025; 93005; 95816; 99285; J1200; J1630; J1650; J1953; J2060; J3360; J3411; J3475; J3480; J7120; S9485

== ENCOUNTER → 2024-10-19 17:19 | Outpatient (BNV) | payer OTHER, SELFPAY | PROVIDERS: Admitting Provider Student in an Organized Health Care Education/Training Program; Emergency Provider Emergency Medicine Emergency Medical Services; Visit Provider Internal Medicine Cardiovascular Disease | DX: R55 Syncope and collapse (principal); R94.31 Abnormal electrocardiogram [ECG] [EKG]; R56.9 Unspecified convulsions | CPT/HCPCS: 93010 ==

== ENCOUNTER → 2024-10-19 19:19 | Outpatient (BNV) | payer OTHER, SELFPAY | PROVIDERS: Emergency Provider Emergency Medicine Emergency Medical Services; Visit Provider Student in an Organized Health Care Education/Training Program | DX: F10.90 Alcohol use, unspecified, uncomplicated (principal); G40.409 Other generalized epilepsy and epileptic syndromes, not intractable, without status epilepticus | CPT/HCPCS: 99236; 99499 ==

== ENCOUNTER → 2024-10-19 19:33 | Outpatient (BNV) | payer MEDICAID, SELFPAY | PROVIDERS: Emergency Provider Emergency Medicine Emergency Medical Services; Visit Provider Radiology Diagnostic Radiology | DX: R56.9 Unspecified convulsions (principal); R06.02 Shortness of breath | CPT/HCPCS: 70450; 71045 ==

== ENCOUNTER 2024-10-20 00:29 | Outpatient (BNV) | payer OTHER, SELFPAY | END 2024-10-20 13:10 | PROVIDERS: Admitting Provider Student in an Organized Health Care Education/Training Program; Emergency Provider Emergency Medicine Emergency Medical Services; Visit Provider Radiology Diagnostic Radiology | DX: R56.9 Unspecified convulsions (principal) | CPT/HCPCS: 70551 ==

== ENCOUNTER → 2024-10-20 00:29 | Outpatient (BNV) | payer MEDICAID, SELFPAY | PROVIDERS: Admitting Provider Student in an Organized Health Care Education/Training Program; Emergency Provider Emergency Medicine Emergency Medical Services; Visit Provider Psychiatry & Neurology Neurology | DX: R56.9 Unspecified convulsions (principal) | CPT/HCPCS: 95816 ==

== ENCOUNTER → 2024-10-20 00:29 | Outpatient (BNV) | payer OTHER, SELFPAY | PROVIDERS: Admitting Provider Student in an Organized Health Care Education/Training Program; Emergency Provider Emergency Medicine Emergency Medical Services; Visit Provider Nurse Practitioner Psychiatric/Mental Health | DX: F10.90 Alcohol use, unspecified, uncomplicated (principal) | CPT/HCPCS: 99284 ==